=== PATIENT | female | born 1960 | race American Indian/Alaskan Native ===

== ENCOUNTER 2019-05-17 19:38 | Inpatient (IN) | payer MEDICARE ==
--- NOTE | 2019-05-17 20:00 | Event Note ---
ED Screening Note Date of service: 05/17/19 Time: 19:58 ED Screening Note: This is a 59 y.o. F. that presents to the ER with lower abdominal pain since 1500 today. PMH of ESRD peritoneal dialysis and HTN This initial assessment/diagnostic orders/clinical plan/treatment(s) is/are subject to change based on patients health status, clinical progression and re- assessment by fellow clinical providers in the ED. Further treatment and workup at subsequent clinical providers discretion. Patient/guardian urged not to elope from the ED as their condition may be serious if not clinically assessed and managed. Initial orders include: Labs and CT of abdomen
[2019-05-17] MEDS ORDERED: SODIUM CHLORIDE 0.9% 1000 ML 1,000 ML IV ONE (20:51)
[2019-05-17] MEDS ORDERED: MORPHINE 4 MG/1 ML INJ IV ONE (20:51)
[2019-05-17] MEDS ORDERED: ONDANSETRON 4 MG/2 ML INJ IV ONE ×2 (20:51→22:04)
--- NOTE | 2019-05-17 21:04 | Event Note ---
Date of service: 05/17/19 Face to Face: Nephrology: Dr. Rebollar 59-year-old female, on peritoneal dialysis and hemodialysis when hospitalized, has a right-sided vas cath, typically has all of her medical care at [facility], presenting with nontraumatic right lower quadrant pain, nausea. Patient found to be hypertensive with JVD, and has faint crackles and rales. She is quite tender in the right lower quadrant. She does not make urine. CT scan abdomen pelvis with IV contrast ordered. Peritoneal fluid studies have been ord ered. Contacted her soft mud molder, Dr. Cardenas, who will arrange for dialysis tomorrow. Patient will likely require admission to the medical service for hypertensive urgency, lower abdominal pain, and she'll need hemodialysis within the next 24 hours given her dose of intravenous contrast. Her EKG is abnormal, sinus rhythm, 265 beats for minute, first-degree AV block, prolonged TN interval, left ventricular hypertrophy, motion artifact, poor R wave progression. Discussed plan of care with patient and family who verbalizes understanding, and whom are amenable to this plan of care. Vital Signs 05/17/19 05/17/19 05/17/19 19:52 21:43 21:46 Temperature 98.3 F Pulse Rate 65 Respiratory 14 Rate Blood Pressure 199/78 204/72 O2 Sat by Pulse 95 96 96 Oximetry 05/17/19 05/17/19 21:49 22:00 Temperature Pulse Rate 65 Respiratory Rate Blood Pressure 199/78 188/72 O2 Sat by Pulse 96 Oximetry Lab Results 05/17/19 05/17/19 05/17/19 Range/Units 20:49 20:49 21:15 WBC 8.9 (4.5-11.0) K/mm3 RBC 3.94 (3.65-5.03) M/mm3 Hgb 11.3 (10.1-14.3) gm/dl Hct 34.7 (30.3-42.9) % MCV 88 (79-97) fl MCH 29 (28-32) pg MCHC 33 (30-34) % RDW 14.0 (13.2-15.2) % Plt Count 353 (140-440) K/mm3 Lymph % (Auto) 13.7 (13.4-35.0) % Rush % (Auto) 7.8 H (0.0-7.3) % Eos % (Auto) 0.7 (0.0-4.3) % Baso % (Auto) 0.5 (0.0-1.8) % Lymph # 1.2 (1.2-5.4) K/mm3 Rush # 0.7 (0.0-0.8) K/mm3 Eos # 0.1 (0.0-0.4) K/mm3 Baso # 0.0 (0.0-0.1) K/mm3 Seg Neutrophils % 77.3 H (40.0-70.0) % Seg Neutrophils # 6.9 (1.8-7.7) K/mm3 Sodium 134 L (137-145) mmol/L Potassium 3.6 (3.6-5.0) mmol/L Chloride 93.5 L (98-107) mmol/L Carbon Dioxide 27 (22-30) mmol/L Anion Gap 17 mmol/L BUN 54 H (7-17) mg/dL Creatinine 8.4 H (0.7-1.2) mg/dL Estimated GFR 5 ml/min BUN/Creatinine Ratio 6 % Glucose 81 (65-100) mg/dL Lactic Acid (0.7-2.0) mmol/L Calcium 8.6 (8.4-10.2) mg/dL Magnesium 1.70 (1.7-2.3) mg/dL Total Bilirubin 0.20 (0.1-1.2) mg/dL AST 14 (5-40) units/L ALT 7 (7-56) units/L Alkaline Phosphatase 81 (35-129) units/L Total Creatine Kinase 47 (30-135) units/L Total Protein 7.2 (6.3-8.2) g/dL Albumin 2.1 L (3.9-5) g/dL Albumin/Globulin Ratio 0.4 % Lipase 28 (13-60) units/L //19 Range/Units 21:15 WBC (4.5-11.0) K/mm3 RBC (3.65-5.03) M/mm3 Hgb (10.1-14.3) gm/dl Hct (30.3-42.9) % MCV (79-97) fl MCH (28-32) pg MCHC (30-34) % RDW (13.2-15.2) % Plt Count (140-440) K/mm3 Lymph % (Auto) (13.4-35.0) % Rush % (Auto) (0.0-7.3) % Eos % (Auto) (0.0-4.3) % Baso % (Auto) (0.0-1.8) % Lymph # (1.2-5.4) K/mm3 Rush # (0.0-0.8) K/mm3 Eos # (0.0-0.4) K/mm3 Baso # (0.0-0.1) K/mm3 Seg Neutrophils % (40.0-70.0) % Seg Neutrophils # (1.8-7.7) K/mm3 Sodium (137-145) mmol/L Potassium (3.6-5.0) mmol/L Chloride (98-107) mmol/L Carbon Dioxide (22-30) mmol/L Anion Gap mmol/L BUN (7-17) mg/dL Creatinine (0.7-1.2) mg/dL Estimated GFR ml/min BUN/Creatinine Ratio % Glucose (65-100) mg/dL Lactic Acid 0.60 L (0.7-2.0) mmol/L Calcium (8.4-10.2) mg/dL Magnesium (1.7-2.3) mg/dL Total Bilirubin (0.1-1.2) mg/dL AST (5-40) units/L ALT (7-56) units/L Alkaline Phosphatase (35-129) units/L Total Creatine Kinase (30-135) units/L Total Protein (6.3-8.2) g/dL Albumin (3.9-5) g/dL Albumin/Globulin Ratio % Lipase (13-60) units/L
[2019-05-17 21:10] LABS: Basophils % (Auto) 0.5 % (0.0-1.8); Eosinophils # (Auto) 0.1 K/mm3 (0.0-0.4); Eosinophils % (Auto) 0.7 % (0.0-4.3); Hematocrit 34.7 % (30.3-42.9); Hemoglobin 11.3 gm/dl (10.1-14.3); Lymphocytes # (Auto) 1.2 K/mm3 (1.2-5.4); Lymphocytes % (Auto) 13.7 % (13.4-35.0); Mean Corpuscular HGB Conc 33 % (30-34); Mean Corpuscular Volume 88 fl (79-97); Monocytes # (Auto) 0.7 K/mm3 (0.0-0.8); Monocytes % (Auto) 7.8 % (0.0-7.3); Platelet Count 353 K/mm3 (140-440); Red Blood Count 3.94 M/mm3 (3.65-5.03)
[2019-05-17] MEDS ORDERED: hydrALAZINE 20 MG/1 ML INJ IV ONE (21:10)
[2019-05-17 21:35] LABS: Albumin 2.1 g/dL (3.9-5); Calcium 8.6 mg/dL (8.4-10.2)
[2019-05-17] MEDS ORDERED: ONDANSETRON 4 MG/2 ML INJ ONE (21:59)
--- NOTE | 2019-05-17 22:23 | Emergency Department Report ---
<SHANNON LÓPEZ - Last Filed: 05/18/19 00:46> ED Abdominal Pain HPI - General Chief Complaint: Abdominal Pain Stated Complaint: ABDOMINAL PAIN Time Seen by Provider: 05/17/19 19:58 Source: patient, family Mode of arrival: Ambulatory Limitations: No Limitations - History of Present Illness Initial Comments: This is a 59-year-old female nontoxic, well nourished in appearance, no acute signs of distress presents to the ED with c/o of right lower abdominal pain. Patient denies any n/v. Patient describes abdominal pain as cramping and aching with level of 10/10. Patient denies chest pain, short of breath, fever, chills, headache, stiff neck, numbness or tingling. Patient denies any diarrhea or constipation. Patient denies any recent travels. Patient denies any allergies. PMH includes HTN and ESRD. Patient is on peritoneal dialysis daily. Patient stated that she does dialysis at home every night. Last dialysis was last night. Patients neurologist is Dr. Seymour. Complaint: abdominal pain -: days(s) Location: LLQ, RLQ Radiation: none Migration to: no migration Severity: moderate Severity scale (0 -10): 10 Quality: cramping, aching Consistency: constant Improves With: nothing Worsens With: nothing Associated Symptoms: denies other symptoms. denies: nausea, vomiting, diarrhea, fever, chills, constipation, dysuria, hematemesis, hematochezia, melena, hematuria, anorexia, syncope - Related Data Allergies Allergy/AdvReac Type Severity Reaction Status Date / Time No Known Allergies Allergy Verified 05/17/19 22:07 ED Review of Systems Constitutional: denies: chills, fever Eyes: denies: eye pain, eye discharge, vision change ENT: denies: ear pain, throat pain Respiratory: denies: cough, shortness of breath, wheezing Cardiovascular: denies: chest pain, palpitations Endocrine: no symptoms reported Gastrointestinal: abdominal pain. denies: nausea, vomiting, diarrhea Genitourinary: denies: urgency, dysuria, discharge Musculoskeletal: denies: back pain, joint swelling, arthralgia Skin: denies: rash, lesions Neurological: denies: headache, weakness, paresthesias Psychiatric: denies: anxiety, depression Hematological/Lymphatic: denies: easy bleeding, easy bruising ED Past Medical Hx - Past Medical History Previous Medical History?: Yes Hx Hypertension: Yes Hx Sickle Cell Disease: Yes (Chronic Kidney Disease. On peritoneal dialysis) - Surgical History Past Surgical History?: Yes Additional Surgical History: Hysterectomy - Social History Smoking Status: Never Smoker Substance Use Type: None ED Physical Exam - General Limitations: No Limitations General appearance: alert, in no apparent distress - Head Head exam: Present: atraumatic, normocephalic - Eye Eye exam: Present: normal appearance - Neck Neck exam: Present: normal inspection, full ROM. Absent: tenderness, meningismus, lymphadenopathy - Respiratory Respiratory exam: Present: normal lung sounds bilaterally, rales. Absent: respiratory distress, wheezes, rhonchi, stridor, chest wall tenderness, accessory muscle use, decreased breath sounds, prolonged expiratory - Cardiovascular Cardiovascular Exam: Present: regular rate. Absent: tachycardia - GI/Abdominal GI/Abdominal exam: Present: distended, tenderness, normal bowel sounds. Absent: guarding, rebound, rigid, diminished bowel sounds - Extremities Exam Extremities exam: Present: normal inspection, full ROM, normal capillary refill. Absent: tenderness - Back Exam Back exam: Present: normal inspection, full ROM. Absent: tenderness, CVA tenderness (R), CVA tenderness (L), muscle spasm, paraspinal tenderness, vertebral tenderness, rash noted - Neurological Exam Neurological exam: Present: alert, oriented X3, normal gait - Psychiatric Psychiatric exam: Present: normal affect, normal mood - Skin Skin exam: Present: warm, dry, intact, normal color. Absent: rash ED Course - Reevaluation(s) Reevaluation #1: 05/17/19 22:24 Patient is speaking in full sentences with no signs of distress noted. - Consultations Consultation #1: 05/17/19 22:24 Patient has been consulted with Zi Candelario about patient history, physical exam, and examined and screened patient and agrees to ED plan of care and admission. Consultation #2: 05/17/19 21:47 Patient was consulted with Dr. Cardenas (electric locomotive firer/fireman) by Dr. Cox and agrees for admission and will perform Dialysis tomorrow. Consultation #3: 05/18/19 00:47 Patient has been consulted with Michael Newton (hospitalist) about patient history, physical exam, and labs/CT results and accepts patient to services. ED Medical Decision Making - Lab Data Result diagrams: 05/17/19 20:49 05/17/19 20:49 - EKG Data Interpretation: other (sinus rhythm with LVH. No significant ST abnormalities. No STEMI.) 05/18/19 00:[address] Cox - Medical Decision Making This is a 59-year-old female that presents with UTI, abdominal ascites, emergency hypertension. Patient is currently stable and was examined by me and Dr. Cox. Patient was consulted with Dr. Cardenas and agrees to admission with hospitalist and patient is accepted with Dr. Caraballo. Labs has been obtained . Patient received Bactrim by mouth in the ER. At time of admission, the patient does not seem toxic or ill in appearance. No acute signs of distress noted. Patient agrees to admission treatment plan of care. No further questions noted by the patient. - Differential Diagnosis appendicitis, enteritis, GI bleed, dialysis catheter infection ED Disposition Clinical Impression: Right sided abdominal pain, End stage renal disease on dialysis Ascites Qualifiers: Ascites type: other type Qualified Code(s): R18.8 - Other ascites Disposition: DC-09 OP ADMIT IP TO THIS HOSP Is pt being admited?: Yes Condition: Stable <RADHA COX - Last Filed: 05/19/19 02:50> ED Review of Systems ROS: Stated complaint: ABDOMINAL PAIN Other details as noted in HPI ED Course Vital Signs 05/17/19 05/17/19 05/17/19 19:52 21:43 21:46 Temperature 98.3 F Pulse Rate 65 Respiratory 14 Rate Blood Pressure 199/78 204/72 O2 Sat by Pulse 95 96 96 Oximetry 05/17/19 05/17/19 05/17/19 21:49 22:00 22:15 Temperature Pulse Rate 65 Respiratory Rate Blood Pressure 199/78 188/72 169/69 O2 Sat by Pulse 96 94 Oximetry 05/17/19 05/17/19 05/17/19 22:30 22:34 22:45 Temperature Pulse Rate Respiratory Rate Blood Pressure 176/70 169/69 168/73 O2 Sat by Pulse 95 95 93 Oximetry 05/17/19 05/17/19 05/17/19 23:00 23:15 23:30 Temperature Pulse Rate Respiratory Rate Blood Pressure 161/70 167/73 167/74 O2 Sat by Pulse 93 95 95 Oximetry 1105/18/19 05/18/19 00:06 00:15 00:30 Temperature Pulse Rate Respiratory Rate Blood Pressure 167/74 171/70 157/73 O2 Sat by Pulse 95 92 91 Oximetry 05/18/19 05/18/19 05/18/19 00:45 01:00 01:15 Temperature Pulse Rate Respiratory Rate Blood Pressure 161/72 160/73 159/69 O2 Sat by Pulse 90 93 92 Oximetry 05/18/19 05/18/19 05/18/19 01:30 01:45 02:00 Temperature Pulse Rate Respiratory Rate Blood Pressure 151/70 156/76 146/72 O2 Sat by Pulse 90 89 87 Oximetry 05/18/19 05/18/19 05/18/19 02:15 02:30 02:45 Temperature Pulse Rate Respiratory Rate Blood Pressure 144/73 145/73 141/69 O2 Sat by Pulse 87 91 89 Oximetry 05/18/19 05/18/19 05/18/19 03:00 03:10 03:20 Temperature Pulse Rate Respiratory Rate Blood Pressure 146/72 146/72 145/73 O2 Sat by Pulse 88 92 89 Oximetry 05/18/19 05/18/19 03:30 03:40 Temperature Pulse Rate Respiratory Rate Blood Pressure 148/74 148/74 O2 Sat by Pulse 88 90 Oximetry ED Medical Decision Making - Lab Data Result diagrams: 05/18/19 04:32 05/18/19 04:32 Critical care attestation.: If time is entered above; I have spent that time in minutes in the direct care of this critically ill patient, excluding procedure time. ED Disposition Is pt being admited?: Yes
[2019-05-17 23:28] LABS: Bacteria,Urine 1+ /HPF (Negative); Bilirubin,Urine NEG (Negative); Blood,Urine SM (Negative); Color,Urine Straw (Yellow); Urobilinogen,Urine < 2.0 mg/dL (<2.0)
[2019-05-17] MEDS ORDERED: SODIUM CHLORIDE 0.9% 100 ML IV PRN (23:45)
[2019-05-17] MEDS ORDERED: EPOETIN ALFA 10,000 UNIT/1 ML INJ SUB-Q PRN (23:45)
[2019-05-17] MEDS ORDERED: ALBUMIN HUMAN 25% (12.5 GM/50 ML) INJ IV PRN (23:45)
--- NOTE | 2019-05-18 00:42 | Cat Scan Report ---
CT ABDOMEN AND PELVIS WITH IV CONTRAST INDICATION: Generalized lower abdominal pain TECHNIQUE: Following the administration of intravenous contrast, multiple axial CT images of the abdo men and pelvis were acquired. Sagittal and coronal reformats were obtained. All CT performed at this facility utilize dose reduction techniques including automated exposure control, iterative reconstru ction and weight based dosing when appropriate to reduce patient radiation dose to as low as reasonab ly achievable. COMPARISON: No prior studies are available for comparison. FINDINGS: Limited imaging of the bilateral lung bases demonstrates cardiomegaly. Right lower lobe parenchymal c onsolidation is present. Abdomen: There is moderate volume ascites throughout the abdomen. The liver, gallbladder, spleen, delgadillo creas and bilateral adrenal glands show no evidence of acute abnormality. Bilateral kidneys are atrop hic. There is a small amount of free air within the anterior upper abdomen centered around the perito jennifer dialysis catheter. There is dense atherosclerotic calcification along the abdominal aorta and wi thin the distribution of the mesenteric vessels. There is no evidence of bowel obstruction. Pelvis: There is a moderate amount of free pelvic fluid. The peritoneal dialysis catheter is coiled w ithin the pelvis. Bones and Soft Tissues: Evaluation of bony structures demonstrates no evidence of acute bony abnormal ity. Evaluation of soft tissue structures demonstrates generalized anasarca. IMPRESSION: 1. Moderate amount of abdominopelvic ascites and anasarca representing a volume overloaded state. 2. Small amount of free air within the anterior abdomen surrounding the peritoneal dialysis catheter. The free air is most likely related to catheter placement or manipulation. However, please correlate with patient's clinical circumstances. 3. Right lower lobe parenchymal consolidation that may represent either atelectasis or developing inf ectious process such as pneumonia. Signer Name: Devi Romero MD Signed: 05/18/2019 12:38 AM Workstation Name: [email or web address]
[2019-05-18] MEDS ORDERED: SULFAMETHOXAZOLE/TRIMETHOPRIM 800/160MG DS TAB PO ONE (00:50)
[2019-05-18] MEDS ORDERED: MORPHINE 4 MG/1 ML INJ IV ONE (00:51)
[2019-05-18] MEDS ORDERED: hydrALAZINE 20 MG/1 ML INJ IV PRN (01:18)
[2019-05-18] MEDS ORDERED: ACETAMINOPHEN 325 MG TAB PO PRN (01:18)
--- NOTE | 2019-05-18 01:18 | History and Physical Report ---
History of Present Illness Date of examination: 05/18/19 History of present illness: 59 year old woman with hypertension, end-stage renal disease on peritoneal dialysis comes emergency room with complaint of abdominal pain located in the lower abdomen which she describes as a "pain", constant, intensity 5/10, no radiation, cannot identify exacerbating factor, relieved with pain medication. Denies nausea vomiting, shortness of breath, cough, fever, chills Review of systems Constitutional: no weight loss, chills, fever Ears, eyes, nose, mouth and throat: no nasal congestion, no nasal discharge, no sinus pressure, no vision change, no red eye. Neck: No neck pain or rigidity. Cardiovascular: no chest pain, palpitations Respiratory: no cough, shortness of breath Gastrointestinal: no hematochezia Genitourinary : no frequency , no hematuria Musculoskeletal: no joint swelling or muscle ache Integumentary: no rash, no pruritis Neurological: no parathesias, no numbness, no focal weakness Endocrine: no cold or heat intolerance, no polyuria or polydipsia Hematologic/Lymphatic: no easy bruising, no easy bleeding, no gland swelling Allergic/Immunologic: no urticaria, no angioedema. PAST MEDICAL HISTORY hypertension, ESRD PAST SURGICAL HISTORY: Hysterectomy SOCIAL HISTORY: No drugs, tobacco, no alcohol FAMILY HISTORY: Hypertension Medications and Allergies Allergies Allergy/AdvReac Type Severity Reaction Status Date / Time No Known Allergies Allergy Verified 05/17/19 22:07 Active Meds: Active Medications Albumin Human (Alburx 25% (Albumin)) 12.5 gm IV LUIS ALBERTO PRN PRN Reason: Hypotension Epoetin Tirso (Procrit) 10,000 unit SUB-Q LUIS ALBERTO PRN PRN Reason: hemodialysis Sodium Chloride (Nacl 0.9%) 100 mls @ 999 mls/hr IV LUIS ALBERTO PRN PRN Reason: Hypotension Exam - Physical Exam Narrative exam: Gen. appearance: Patient lying in bed, no apparent distress HEENT: Normocephalic, atraumatic, pupils equally round and reactive to light, extraocular movement intact, and no sclericterus,. No JVD or thyromegaly or nodule,neck supple, no carotid bruit ,mucous membranes moist, no exudate or erythema Heart: S1, S2, regular rate and rhythm Lungs: Clear bilaterally, breathing comfortable Abdomen: Positive bowel sounds, tender in lower quadrants, nondistended, no organomegaly Extremity:no edema cyanosis, clubbing Skin: no rash, dry, warm Neuro: Oriented 3, cranial nerves II-12 intact, speech is fluent, motor and sensory intact - Constitutional Vitals: Temp Pulse Resp BP Pulse Ox 98.3 F 65 14 176/70 95 05/17/19 19:52 05/17/19 21:49 05/17/19 19:52 05/17/19 22:30 05/17/19 22:30 Results - Labs CBC & Chem 7: 05/17/19 20:49 05/17/19 20:49 Labs: Abnormal lab results 05/17/19 05/17/19 05/17/19 Range/Units 20:49 20:49 21:15 [place] % (Auto) 7.8 H (0.0-7.3) % Seg Neutrophils % 77.3 H (40.0-70.0) % Sodium 134 L (137-145) mmol/L Chloride 93.5 L (98-107) mmol/L BUN 54 H (7-17) mg/dL Creatinine 8.4 H (0.7-1.2) mg/dL Lactic Acid 0.60 L (0.7-2.0) mmol/L Albumin 2.1 L (3.9-5) g/dL Urine pH (5.0-7.0) Urine WBC (Auto) (0.0-6.0) /HPF 05/17/19 Range/Units Unknown [place]leton % (Auto) (0.0-7.3) % Seg Neutrophils % (40.0-70.0) % Sodium (137-145) mmol/L Chloride (98-107) mmol/L BUN (7-17) mg/dL Creatinine (0.7-1.2) mg/dL Lactic Acid (0.7-2.0) mmol/L Albumin (3.9-5) g/dL Urine pH 9.0 H (5.0-7.0) Urine WBC (Auto) 108.0 H (0.0-6.0) /HPF - Imaging and Cardiology CT scan - abdomen: report reviewed CT scan - pelvis: report reviewed Assessment and Plan Assessment Abdominal pain nonspecific End-stage renal disease needing dialysis Urinary tract infection Hypertension Plan Admit to medicine Start IV Rocephin, renal was consulted to see the patient IV hydralazine as needed for blood pressure control DVT prophylaxis, IV morphine for pain
[2019-05-18] MEDS: cefTRIAXone/NS 1 GM/50 ML 1 GM/50 ML BAG IV SCH (01:59)
[2019-05-18] MEDS: MORPHINE 2 MG/1 ML INJ IV PRN ×5 (05:03→21:08)
[2019-05-18 05:10] LABS: Basophils # (Auto) 0.1 K/mm3 (0.0-0.1); Basophils % (Auto) 0.5 % (0.0-1.8); Eosinophils % (Auto) 0.3 % (0.0-4.3); Hematocrit 32.9 % (30.3-42.9); Hemoglobin 10.6 gm/dl (10.1-14.3); Lymphocytes # (Auto) 1.1 K/mm3 (1.2-5.4); Lymphocytes % (Auto) 10.2 % (13.4-35.0); Mean Corpuscular HGB Conc 32 % (30-34); Mean Corpuscular Volume 88 fl (79-97); Monocytes % (Auto) 8.6 % (0.0-7.3); Platelet Count 330 K/mm3 (140-440); Red Blood Count 3.74 M/mm3 (3.65-5.03); Red Cell Distribution Width 14.4 % (13.2-15.2)
[2019-05-18 05:26] LABS: Calcium 8.3 mg/dL (8.4-10.2)
[2019-05-18] MEDS ORDERED: SODIUM CHLORIDE 0.9% 100 ML IV PRN (08:00)
[2019-05-18] MEDS: ONDANSETRON 4 MG/2 ML INJ IV PRN ×2 (09:03→17:05)
[2019-05-18] MEDS ORDERED: SODIUM CHLORIDE*PRIMING MACHINE ONLY FOR DIALYSIS MC ONE (12:07)
--- NOTE | 2019-05-18 12:07 | Consultation ---
History of Present Illness - Reason for Consult Consult date: 05/18/19 end stage renal disease - History of Present Illness 59-year-old -[place] female all known to our clinic who has a history of end-stage renal disease on peritoneal dialysis who has been having persistent issues with volume overload. She has required multiple hospitalizations secondary to the volume overload. She has a permacath in place for temporary dialysis as she has been having these aforementioned issues. She came in to the ED yesterday secondary to worsening abdominal pain. CT scan does show a modera te amount of ascites and volume overload state. She has been doing peritoneal dialysis at home with her last PD session on Wednesday evening. She is on a cycler at home. She has been utilizing the 2.5% dianeal solutions. Past History Past Medical History: ESRD, hypertension Past Surgical History: hysterectomy, Other (PD catheter placement) Social history: no significant social history Family history: hypertension Medications and Allergies Allergies Allergy/AdvReac Type Severity Reaction Status Date / Time No Known Allergies Allergy Verified 05/17/19 22:07 Home Medications Medication Instructions Recorded Confirmed Last Taken Type Bisacodyl [Dulcolax] 10 mg PO DAILY PRN 05/18/19 05/18/19 Unknown History Celecoxib [celeBREX] 200 mg PO BID 05/18/19 05/18/19 Unknown History Furosemide [Lasix TAB] 40 mg PO QDAY 05/18/19 05/18/19 Unknown History Gabapentin 100 mg PO QHS PRN 05/18/19 05/18/19 Unknown History Lisinopril [Zestril TAB] 40 mg PO QDAY 05/18/19 05/18/19 Unknown History Lubiprostone [Amitiza] 24 mcg PO BID 05/18/19 05/18/19 Unknown History Omeprazole 20 mg PO DAILY 05/18/19 05/18/19 Unknown History Sevelamer Carbonate [Renvela] 2,400 mg PO AC 05/18/19 05/18/19 Unknown History carvediloL [Coreg] 6.25 mg PO BID 05/18/19 05/18/19 Unknown History hydrALAZINE [Apresoline TAB] 150 mg PO BID 05/18/19 05/18/19 Unknown History Active Meds: Active Medications Acetaminophen (Tylenol) 650 mg PO Q4H PRN PRN Reason: Pain MILD(1-3)/Fever >100.5/LUO Albumin Human (Alburx 25% (Albumin)) 12.5 gm IV LUIS ALBERTO PRN PRN Reason: Hypotension Enoxaparin Sodium (Enoxaparin) 30 mg SUB-Q QDAY [facility] Epoetin Tirso (Procrit) 10,000 unit SUB-Q LUIS ALBERTO PRN PRN Reason: hemodialysis Hydralazine HCl (Apresoline) 5 mg IV Q6H PRN PRN Reason: Hypertension Ceftriaxone Sodium (Rocephin/Ns 1 Gm/50 Ml) 1 gm in 50 mls @ 100 mls/hr IV Q24H [facility]; Protocol Last Admin: 05/18/19 01:59 Dose: 100 mls/hr Documented by: Sodium Chloride (Nacl 0.9%) 100 mls @ 999 mls/hr IV LUIS ALBERTO PRN PRN Reason: Hypotension Morphine Sulfate (Morphine) 2 mg IV Q4H PRN PRN Reason: Pain, Moderate (4-6) Last Admin: 05/18/19 09:03 Dose: 2 mg Documented by: Ondansetron HCl (Zofran) 4 mg IV Q8H PRN PRN Reason: Nausea And Vomiting Last Admin: 05/18/19 09:03 Dose: 4 mg Documented by: Sodium Chloride (Sodium Chloride Flush Syringe 10 Ml) 10 ml IV BID [facility] Sodium Chloride (Sodium Chloride Flush Syringe 10 Ml) 10 ml IV PRN PRN PRN Reason: LINE FLUSH Last Admin: 05/18/19 05:03 Dose: 10 ml Documented by: Review of Systems All systems: negative Constitutional: fatigue, weakness Respiratory: shortness of breath Gastrointestinal: abdominal pain Exam - Vital Signs Vital signs: Vital Signs Temp Pulse Resp BP Pulse Ox 98.3 F 65 14 199/78 95 05/17/19 19:52 05/17/19 19:52 05/17/19 19:52 05/17/19 19:52 05/17/19 19:52 - General Appearance General appearance: well-developed, well-nourished, appears stated age, obese EENT: ATNC, PERRL Neck: Present: neck supple, trachea midline Respiratory: Decreased Breath Sounds Heart: regular, S1S2 Gastrointestinal: Present: normal, normoactive bowel sounds Integumentary: no rash, warm and dry Neurologic: no focal deficit Musculoskeletal: Present: deferred Psychiatric: mood/affect appropriate, cooperative Results - Lab Results 05/18/19 04:32 05/18/19 04:32 Most recent lab results Calcium 8.3 mg/dL (8.4-10.2) L 05/18/19 04:32 Magnesium 1.70 mg/dL (1.7-2.3) 05/17/19 21:15 Assessment and Plan - Patient Problems (1) End stage renal disease on dialysis Current Visit: Yes Status: Chronic Plan to address problem: Patient will be hemodialyzed here in order to improve and optimize her overall volume status. I discussed with patient that with discharge she should utilize 4.25% dianeal solution during her peritoneal dialysis cycler in order to optimize volume removal. 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 Her elevated blood pressures may also likely be indicator of overall volume overload state. (3) Ascites Current Visit: Yes Status: Chronic Qualifiers: Ascites type: other type Qualified Code(s): R18.8 - Other ascites Plan to address problem: We will optimize ultrafiltration with hemodialysis today to improve her overall volume status. Depending on her overall volume status she may require an extra session of isolated UF tomorrow. We will monitor daily for dialysis needs. (4) UTI (urinary tract infection) Current Visit: Yes Status: Acute Qualifiers: Urinary tract infection type: site unspecified Hematuria presence: with hematuria Qualified Code(s): N39.0 - Urinary tract infection, site not specified; R31.9 - Hematuria, unspecified Plan to address problem: Please ensure that antibiotics are dosed appropriately for her renal function.
--- NOTE | 2019-05-18 13:45 | Event Note ---
Date: 05/18/19 Patient with UTI with abd pain, ESRD. I have seen and examined her. Continue current management.
[2019-05-18] MEDS ORDERED: GABAPENTIN 100 MG CAP PO PRN (15:42)
[2019-05-18] MEDS ORDERED: NON-FORMULARY EACH (Omeprazole [Omeprazole] 20 MG) PO SCH (15:45)
[2019-05-18] MEDS ORDERED: NON-FORMULARY EACH (Lubiprostone [Amitiza] 24 MCG) PO SCH (15:45)
[2019-05-18 15:47] LABS: Hepatitis B Surface Antigen Non-Reactive (Negative); Hepatitis C Virus Antibody Non-Reactive (NonReactive)
[2019-05-18] MEDS: SEVELAMER CARBONATE 800 MG TAB PO SCH (17:03)
[2019-05-18] MEDS: ENOXAPARIN 30 MG/0.3 ML INJ SUB-Q SCH (17:04)
[2019-05-18] MEDS: carvediloL 6.25 MG TAB PO SCH ×2 (17:04→21:07)
[2019-05-18] MEDS: hydrALAZINE 100 MG TAB PO SCH (21:07)
[2019-05-18] MEDS: CELECOXIB 200 MG CAP PO SCH (21:08)
[2019-05-19] MEDS: cefTRIAXone/NS 1 GM/50 ML 1 GM/50 ML BAG IV SCH (04:45)
[2019-05-19] MEDS: MORPHINE 2 MG/1 ML INJ IV PRN (04:46)
[2019-05-19] MEDS: hydrOXYzine HCL 25 MG TAB PO PRN ×2 (06:31→12:56)
--- NOTE | 2019-05-19 08:09 | Progress Note ---
Assessment and Plan - Patient Problems (1) End stage renal disease on dialysis Current Visit: Yes Status: Chronic Plan to address problem: Patient will be hemodialyzed here in order to improve and optimize her overall volume status. I discussed with patient that with discharge she should utilize 4.25% dianeal solution during her peritoneal dialysis cycler in order to optimize volume removal. 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 Her elevated blood pressures may also likely be indicator of overall volume overload state. (3) Ascites Current Visit: Yes Status: Chronic Qualifiers: Ascites type: other type Qualified Code(s): R18.8 - Other ascites Plan to address problem: We will optimize ultrafiltration with hemodialysis today to improve her overall volume status. We'll hold off on hemodialysis today given the amount of fluid that we removed yesterday as well as her labile blood pressures this morning. (4) Acute cystitis without hematuria Current Visit: Yes Status: Acute Plan to address problem: Continue current antibiotics per primary attending. Please ensure that antibiotics dosed appropriately for her renal function. Subjective Date of service: 05/19/19 Interval history: No acute complaints this morning. She states that her abdominal pain is still present but improved since admission. Her respiratory status is stable. She tolerated hemodialysis well yesterday with removal of 3 L ultrafiltration. Objective - Vital Signs Vital signs: Vital Signs - 12hr 05/18/19 05/18/19 05/18/19 20:11 21:07 21:19 Temperature 98.4 F Pulse Rate 73 73 Respiratory 18 Rate Blood Pressure 141/70 Blood Pressure 141/70 [Left] O2 Sat by Pulse 98 96 Oximetry 05/19/19 05:01 Temperature 98.8 F Pulse Rate 71 Respiratory 16 Rate Blood Pressure 104/62 Blood Pressure [Left] O2 Sat by Pulse 93 Oximetry - General Appearance General appearance: well-developed, well-nourished, appears stated age EENT: ATNC, PERRL Neck: no JVD, no thyromegaly Respiratory: Present: Clear to Ascultation, Normal Exam Cardiology: regular, S1S2 Gastrointestinal: normal, normoactive bowel sounds Integumentary: no rash, warm and dry Neurologic: no focal deficit, no asterixis, alert and oriented x3 Musculoskeletal: deferred Psychiatric: mood/affect appropriate, cooperative - Lab 05/18/19 04:32 05/18/19 04:32 Most recent lab results Calcium 8.3 mg/dL (8.4-10.2) L 05/18/19 04:32 Magnesium 1.70 mg/dL (1.7-2.3) 05/17/19 21:15 - Allied health notes Allied health notes reviewed: nursing Medications & Allergies - Medications Allergies/Adverse Reactions: Allergies No Known Allergies Allergy (Verified 05/17/19 22:07) Home Medications: Home Medications Medication Instructions Recorded Confirmed Last Taken Type Bisacodyl [Dulcolax] 10 mg PO DAILY PRN 05/18/19 05/18/19 Unknown History Celecoxib [celeBREX] 200 mg PO BID 05/18/19 05/18/19 Unknown History Furosemide [Lasix TAB] 40 mg PO QDAY 05/18/19 05/18/19 Unknown History Gabapentin 100 mg PO QHS PRN 05/18/19 05/18/19 Unknown History Lisinopril [Zestril TAB] 40 mg PO QDAY 05/18/19 05/18/19 Unknown History Lubiprostone [Amitiza] 24 mcg PO BID 05/18/19 05/18/19 Unknown History Omeprazole 20 mg PO DAILY 05/18/19 05/18/19 Unknown History Sevelamer Carbonate [Renvela] 2,400 mg PO AC 05/18/19 05/18/19 Unknown History carvediloL [Coreg] 6.25 mg PO BID 05/18/19 05/18/19 Unknown History hydrALAZINE [Apresoline TAB] 150 mg PO BID 05/18/19 05/18/19 Unknown History Active Medications: Generic Name Dose Route Start Last Admin Trade Name Freq PRN Reason Stop Dose Admin Acetaminophen 650 mg 05/18/19 01:18 Tylenol PO Q4H PRN Pain MILD(1-3)/Fever >100.5/LUO Albumin Human 12.5 gm 05/17/19 23:45 Alburx 25% (Albumin) IV LUIS ALBERTO PRN Hypotension Bisacodyl 10 mg 05/18/19 15:42 Dulcolax PO DAILY PRN Constipation Carvedilol 6.25 mg 05/18/19 16:00 05/18/19 21:07 Coreg PO 6.25 mg BID RAISA Administration Celecoxib 200 mg 05/18/19 22:00 05/18/19 21:08 Celebrex PO 200 mg BID RAISA Administration Enoxaparin Sodium 30 mg 05/18/19 10:00 05/18/19 17:04 Enoxaparin SUB-Q 30 mg QDAY RAISA Administration Epoetin Tirso 10,000 unit 05/17/19 23:45 05/18/19 12:15 Procrit SUB-Q 10,000 unit LUIS ALBERTO PRN Administration hemodialysis Furosemide 40 mg 05/19/19 10:00 Lasix PO QDAY [facility] Gabapentin 100 mg 05/18/19 15:42 05/18/19 21:07 Gabapentin PO 100 mg QHS PRN Administration Pain, Mild (1-3) Hydralazine HCl 5 mg 05/18/19 01:18 Apresoline IV Q6H PRN Hypertension Hydralazine HCl 150 mg 05/18/19 22:00 05/18/19 21:07 Apresoline PO 150 mg BID [facility] Administration Hydroxyzine HCl 25 mg 05/19/19 05:38 05/19/19 06:31 Atarax PO 25 mg Q6H PRN Administration Itching Ceftriaxone Sodium 1 gm in 50 mls @ 100 mls/hr 05/18/19 02:00 05/19/19 04:45 Rocephin/Ns 1 Gm/50 Ml IV 100 mls/hr Q24H [facility] Administration Protocol Sodium Chloride 100 mls @ 999 mls/hr 05/18/19 08:00 Nacl 0.9% IV LUIS ALBERTO PRN Hypotension Lisinopril 40 mg 05/19/19 10:00 Zestril PO QDAY [facility] Miscellaneous Medication 24 mcg 05/18/19 15:45 Lubiprostone [Amitiza] PO BID [facility] Morphine Sulfate 2 mg 05/18/19 01:18 05/19/19 04:46 Morphine IV 2 mg Q4H PRN Administration Pain, Moderate (4-6) Ondansetron HCl 4 mg 05/18/19 01:18 05/18/19 17:05 Zofran IV 4 mg Q8H PRN Administration Nausea And Vomiting Pantoprazole Sodium 20 mg 05/19/19 10:00 Protonix PO QDAY [facility] Sevelamer Carbonate 2,400 mg 05/18/19 16:30 05/18/19 17:03 Renvela PO 2,400 mg AC RAISA Administration Sodium Chloride 10 ml 05/18/19 10:00 05/18/19 21:09 Sodium Chloride Flush Syringe 10 Ml IV 10 ml BID RAISA Administration Sodium Chloride 10 ml 05/18/19 01:18 05/18/19 05:03 Sodium Chloride Flush Syringe 10 Ml IV 10 ml PRN PRN Administration LINE FLUSH
[2019-05-19] MEDS: SEVELAMER CARBONATE 800 MG TAB PO SCH ×2 (08:31→12:34)
[2019-05-19] MEDS ORDERED: FUROSEMIDE 40 MG TAB PO SCH (10:00)
[2019-05-19] MEDS: carvediloL 6.25 MG TAB PO SCH ×2 (10:00→10:10)
[2019-05-19] MEDS ORDERED: PANTOPRAZOLE 20 MG TAB PO SCH (10:00)
[2019-05-19] MEDS ORDERED: LISINOPRIL 40 MG TAB PO SCH (10:00)
[2019-05-19] MEDS: ENOXAPARIN 30 MG/0.3 ML INJ SUB-Q SCH (10:07)
[2019-05-19] MEDS: CELECOXIB 200 MG CAP PO SCH (10:10)
[2019-05-19] MEDS: hydrALAZINE 100 MG TAB PO SCH (10:13)
--- NOTE | 2019-05-19 12:46 | Discharge Summary ---
Providers - Providers Date of Admission: 05/18/19 01:18 Date of discharge: 05/19/19 Attending physician: RADHA RAVI 05/17/19 21:10 Consult to Physician [CONS] Urgent Comment: Dr. Cox spoke with Dr. Cardenas @ [id number] Consulting Provider: VADIM CALVIN Physician Instructions: Reason For Exam: esrd htn Primary care physician: [employer] Hospitalization Condition: Stable Hospital course: Patient is 59 year old woman with hypertension, end-stage renal disease on peritoneal dialysis came to emergency room with complaint of abdominal pain located in the lower abdomen. She denies nausea vomiting, shortness of breath, cough. She was seen and evaluated in Ed and labs show urinary tract infection. She was started on Ceftriaxone and admitted. She was seen by [employer] and dialysis ordered. By following day, she felt better so was discharged home. Disposition: TO HOME OR SELFCARE - Discharge Diagnoses (1) Acute cystitis without hematuria Status: Acute (2) End stage renal disease on dialysis Status: Chronic Core Measure Documentation - Palliative Care Palliative Care/ Comfort Measures: Not Applicable - Core Measures Any of the following diagnoses?: none Exam - Constitutional Vitals: Temp Pulse Resp BP Pulse Ox 98.8 F 72 20 64/22 89 05/19/19 05:01 05/19/19 11:14 05/19/19 11:02 05/19/19 11:14 05/19/19 11:14 Plan Activity: no restrictions Diet: low fat, low cholesterol, low salt, renal Plan of Treatment: 1.Follow up with PCP in 1 week. 2.Continue hemodialysis as scheduled Follow up with: PRIMARY CARE, [Primary Care Provider] - 3-5 Days Prescriptions: cefUROXime [Ceftin] 500 mg PO DAILY 5 Days #10 tablet traMADoL [Ultram 50 MG tab] 50 mg PO Q6HR PRN #10 tablet PRN Reason: Pain
[2019-05-19 14:45] VITALS: BP 150/78
== END 2019-05-19 15:30 | disposition home or self-care (01) | DRG 689 ==
LOC: ED 19:38 → 3A 05-18 01:18
PROVIDERS: ADMIT Internal Medicine; ATTEND Internal Medicine
PROC: 5A1D70Z Performance of Urinary Filtration, Intermittent, Less than 6 Hours Per Day (ICD-10-PCS; principal; 2019-05-18)
DX: N30.00 Acute cystitis without hematuria (principal); N18.6 End stage renal disease; R18.8 Other ascites; I12.0 Hypertensive chronic kidney disease with stage 5 chronic kidney disease or end stage renal disease; Z99.2 Dependence on renal dialysis; Z90.710 Acquired absence of both cervix and uterus; Z82.49 Family history of ischemic heart disease and other diseases of the circulatory system; Z79.899 Other long term (current) drug therapy
CPT/HCPCS: 36415; 74177; 80048; 80053; 80074; 81001; 82140; 82550; 83690; 83735; 85025; 87116; 93005; 93010; 99406; G0378; J0360; J0696; J0885; J1650; J2270; J2405; J7030; Q9967